=== PATIENT | male | born 1960 ===

== ENCOUNTER 2023-07-03 19:22 | Outpatient (CLI) | payer SELFPAY ==
[2023-07-05 11:26] LABS: TB Interpretation Negative (Negative); TB1 Ag minus Nil 0.01 IU/ml
== END 2023-07-03 19:23 | disposition home or self-care (01) ==
LOC: LBO 19:25
PROVIDERS: Visit Provider Nurse Practitioner Family
DX: Z02.1 Encounter for pre-employment examination (principal)
CPT/HCPCS: 36415; 86480